=== PATIENT | male | born 1990 | race Caucasian/White ===

== ENCOUNTER 2017-02-20 01:56 | Emergency (ER) | payer SELFPAY ==
[~2017-02-20] VITALS: Ht 175.3 cm; Wt 69.4 kg
[~2017-02-20 01:56] MED LIST: LEVE500T PO
[2017-02-20 02:01] VITALS: TEMP 36.6; Ht 175.3 cm; Wt 69.4 kg
[2017-02-20] MEDS ORDERED: LEVETIRACETAM 500 MG TAB PO STA (02:32)
[2017-02-20 02:49] VITALS: BP 151/93; PULSE 87; O2SAT 94
--- NOTE | 2017-02-20 03:15 | EMERGENCY ROOM VISIT NOTE ---
History Report prepared by Toya: Paula Conner Under the Supervision of: Dr. Nina Nunez D.O. First contact with patient: 02:07 Chief Complaint: SEIZURE Stated Complaint: SEIZURE History of Present Illness The patient is a 26 year old male who presents to the Emergency Room with complaints of resolved seizure-like activity occurring tonight. He was arguing with a friend when he started having severe shakiness. He fell down as a result of the seizure. He was unable to talk but could hear those around him. He did not lose consciousness and remembers the entire incident. He did not have tongue biting or urinary incontinence. He had dizziness and lightheadedness after the seizure which has now resolved. The patient has a history of seizures with similar symptoms. He was first diagnosed in March 2016. His seizures occur when he is stressed out. He stopped taking Keppra about 6 months ago. He has the prescription for the Keppra and is planning on getting it filled. He has an appointment with his neurologist in 2 weeks. The patient denies headaches, visual changes, chest pain, abdominal pain, or any other complaints. He denies any history of heart disease or diabetes. He denies any drug or alcohol use tonight. The patient's licence has been suspended till 2022. Source of History: patient Onset: tonight Position: other (global) Quality: other (seizure-like activity) Timing: resolved Associated Symptoms: No LOC, No headache, No chest pain, No abdominal pain Review of Systems See HPI for pertinent positives & negatives. A total of 10 systems reviewed and were otherwise negative. Past Medical & Surgical Medical Problems: (1) Migraines (2) NEW SEIZURE DISORDER Family History Cancer Heart disease Social History Smoking Status: Current Every Day Smoker Alcohol Use: none Drug Use: none Marital Status: single Housing Status: lives with family Occupation Status: employed Current/Historical Medications Scheduled Levetiractam (Levetiracetam), 500 MG PO BID Allergies Coded Allergies: Penicillins (Verified Allergy, Unknown, UNKNOWN, 02/20/17) Sulfa Antibiotics (Verified Allergy, Unknown, UNKNOWN, 02/20/17) Physical Exam Vital Signs Date Time Temp Pulse Resp B/P (MAP) Pulse Ox O2 Delivery O2 Flow Rate FiO2 02/20/17 02:49 87 18 151/93 94 02/20/17 02:01 36.6 93 18 146/92 95 Room Air Physical Exam HEENT: Head - normocephalic and atraumatic Pupils are equal, round, and reactive to light. Extraocular eye muscles are intact, and sclera are anicteric. Nose - moist nasal mucosa without discharge. Mouth - moist buccal mucosa. Oropharynx is nonerythematous and there is no tonsillar exudate or edema noted. Neck: Supple; no JVD, nuchal rigidity, cervical lymphadenopathy. Heart: Regular rate and rhythm. There is a normal S1 and S2 with no murmurs, clicks, or gallops appreciated. Lungs: Clear to auscultation bilaterally with no wheezes, rales, or rhonchi. Abdomen: Soft, completely nontender, nondistended, with good bowel sounds. There are no palpable pulsatile masses or hepatosplenomegaly. There is no guarding, rigidity, or rebound noted. Extremities: No evidence of cyanosis, clubbing, or edema. There are easily palpable peripheral pulses. Skin: warm and dry with good turgor and no rashes. Medical Decision & Procedures Medications Administered Medications (Trade) Dose Ordered Sig/Bryanna Route Start Time Stop Time Status Last Admin Dose Admin Levetiracetam (Keppra Tab) 500 mg NOW STAT PO 02/20/17 02:32 02/20/17 02:33 DC 02/20/17 02:42 500 MG Procedure Keppra Tab 500 mg PO ED Course 0207: Past medical records reviewed. The patient was evaluated in room A02. A complete history and physical exam was performed. I attest that I have personally reviewed the patient's current medication list. 0232: Keppra Tab 500 mg PO 0255: Upon reevaluation, the patient is resting comfortably. I discussed findings and results with him. He verbalized agreement of the treatment plan. The patient was discharged home. Medical Decision The patient presents to the Emergency Room with complaints of seizure-like activity. Differential diagnosis includes but is not limited to seizure, pseudoseizure. The patient had this seizure earlier this evening. EMS was called but he refused to be transported to the hospital at that time. I strongly encouraged that he come on his own. The patient's father brought him here for evaluation. The patient has a history of seizures for which she is supposed to be taking Keppra. He stopped taking his medications about 6 months ago and has not had a problem until now. The patient currently does not drive as he was recently incarcerated for driving on a suspended license. His license is suspended until 2022. I suggested that he not perform any dangerous activity until he he has taken his Keppra for some time so that he has a therapeutic level on his body. I also suggested that someone be with him at all times over the next couple of days until he does have a therapeutic level of Keppra in his body. Impression Primary Impression: Seizure Additional Impression: Noncompliance with medication regimen Scribe Attestation The scribe's documentation has been prepared under my direction and personally reviewed by me in its entirety. I confirm that the note above accurately reflects all work, treatment, procedures, and medical decision making performed by me. Departure Information Dispostion Home / Self-Care Referrals No Doctor, Assigned (PCP) Forms HOME CARE DOCUMENTATION FORM, IMPORTANT VISIT INFORMATION Patient Instructions ED Seizure Recurrent, My [facility], Seizures - [facility] Additional Instructions You must take your keppra. No driving You should be with someone at all times for next couple of days until Keppra is correctly dosed Problem Qualifiers
== END 2017-02-20 02:51 | disposition home or self-care (01) ==
LOC: C.EDB 01:56 → C.EDA 02:51
DX: R56.9 Unspecified convulsions (principal); Z91.14 Patient's other noncompliance with medication regimen; F17.210 Nicotine dependence, cigarettes, uncomplicated; Z80.9 Family history of malignant neoplasm, unspecified; Z79.899 Other long term (current) drug therapy

== ENCOUNTER 2017-03-06 14:45 | Emergency (ER) | payer SELFPAY ==
[~2017-03-06] VITALS: Ht 175.3 cm; Wt 65.9 kg
[2017-03-06 14:52] VITALS: Ht 175.3 cm; Wt 65.9 kg
[2017-03-06] MEDS ORDERED: SODIUM CHLORIDE 0.9% 1000ML 500 ML IV STA (15:11)
[2017-03-06] MEDS ORDERED: LEVETIRACETAM IV 500 MG in DEXTROSE 5% 100ML 100 ML IV STA (15:11)
[2017-03-06] MEDS ORDERED: SODIUM CHLORIDE 0.9% 1000ML 1,000 ML IV STA (15:11)
[2017-03-06 15:49] LABS: BASO % 0.5 %; BASO ABS # 0.03 K/uL (0-0.2); COMPLETE YES; HEMATOCRIT 43.1 % (42-52); IG% 0.2 %; LYMPH % 40.2 %; LYMPH ABS # 2.21 K/uL (1.2-3.4); MEAN CELL VOLUME 88.5 fL (80-100); MEAN CORPUSCULAR HEMOGLOBIN 29.4 pg (25-34); MEAN CORPUSCULAR HGB CONC 33.2 g/dl (32-36); MEAN PLATELET VOLUME 10.1 fL (7.4-10.4); MONO % 7.1 %; PLATELET COUNT 195 K/uL (130-400); RED BLOOD COUNT 4.87 M/uL (4.7-6.1)
[2017-03-06 16:10] LABS: BUN/CREATININE RATIO 11.1 (10-20); CALCIUM 8.1 mg/dl (8.5-10.1); CREATININE 0.8 mg/dl (0.60-1.40); POTASSIUM 3.7 mmol/L (3.5-5.1)
[2017-03-06 16:19] LABS: THYROID STIMULATING HORMONE 0.451 uIu/ml (0.300-4.500)
[2017-03-06] MEDS ORDERED: ACETAMINOPHEN 500 MG TAB PO STA (16:58)
[2017-03-06 17:12] VITALS: BP 131/75; PULSE 70; TEMP 36.5; O2SAT 98
--- NOTE | 2017-03-06 18:04 | EMERGENCY ROOM VISIT NOTE ---
History Report prepared by Toya: Agapito Osborn Under the Supervision of: Dr. Nick Frank M.D. First contact with patient: 15:07 Chief Complaint: SEIZURE Stated Complaint: SEIZURES History of Present Illness The patient is a 26 year old male who presents to the Emergency Room with complaints of four episodes of seizure-like activity occurring today. He notes that she recently began taking Keppra again for seizures about a week ago. He states that he stopped taking Keppra because he was staying with family and didn 't refill his prescription. The patient states that he would typically only have breakthrough seizures with increased stress when regularly taking Keppra. He denies any increased stress recently. He states that he has been eating and drinking normally. The patient states that he sat down before his seizures occurred and did not injure himself. He estimates that the episodes lasted for 10-15 seconds. He states that he lost consciousness during the episodes. Source of History: patient Onset: Today Symptom Intensity: 10-15 second episodes Quality: other (Seizure-like activity) Timing: other (four episodes) Modifying Factors (Worsening): other (stress) Associated Symptoms: + LOC Review of Systems See HPI for pertinent positives & negatives. A total of 10 systems reviewed and were otherwise negative. Past Medical & Surgical Medical Problems: (1) Migraines (2) NEW SEIZURE DISORDER Family History Cancer Heart disease Social History Smoking Status: Current Every Day Smoker Alcohol Use: none Drug Use: none Marital Status: single Housing Status: lives with family Occupation Status: employed Current/Historical Medications Scheduled Levetiractam (Levetiracetam), 500 MG PO BID Allergies Coded Allergies: Penicillins (Verified Allergy, Unknown, UNKNOWN, 03/06/17) Sulfa Antibiotics (Verified Allergy, Unknown, UNKNOWN, 03/06/17) Physical Exam Vital Signs Date Time Temp Pulse Resp B/P (MAP) Pulse Ox O2 Delivery O2 Flow Rate FiO2 03/06/17 17:12 36.5 70 16 131/75 98 03/06/17 16:56 70 16 131/75 98 Room Air 03/06/17 15:55 55 03/06/17 15:55 46 16 128/75 98 Room Air 03/06/17 14:52 36.5 65 18 137/83 98 Room Air Physical Exam GENERAL: Patient is in no acute distress. HEENT: No acute trauma, normocephalic atraumatic, mucous membranes moist, no nasal congestion, no scleral icterus. No tongue bite. NECK: No stridor, no adenopathy, no meningismus, trachea is midline. LUNGS: Clear to auscultation bilaterally, no wheeze, no rhonchi, breath sounds equal. HEART: Without murmurs gallops or rubs, regular rate and rhythm. ABDOMEN: Soft, nontender, bowel sounds positive, no hernias, no peritonitis. EXTREMITIES: No cyanosis or edema, full range of motion of all the joints without pain or difficulty, no signs for acute trauma. NEUROLOGIC: Oriented x 3, no acute motor or sensory deficits, no focal weakness. SKIN: No rash, no jaundice, no diaphoresis. Medical Decision & Procedures Laboratory Results 03/06/17 15:35 Red Blood Count 4.87, Mean Corpuscular Volume 88.5, Mean Corpuscular Hemoglobin 29.4, Mean Corpuscular Hemoglobin Concent 33.2, Mean Platelet Volume 10.1, Neutrophils (%) (Auto) 50.0, Lymphocytes (%) (Auto) 40.2, Monocytes (%) (Auto) 7.1, Eosinophils (%) (Auto) 2.0, Basophils (%) (Auto) 0.5, Neutrophils # (Auto) 2.75, Lymphocytes # (Auto) 2.21, Monocytes # (Auto) 0.39, Eosinophils # (Auto) 0.11, Basophils # (Auto) 0.03 03/06/17 15:35 Test 03/06/17 15:35 White Blood Count 5.50 K/uL (4.8-10.8) Red Blood Count 4.87 M/uL (4.7-6.1) Hemoglobin 14.3 g/dL (14.0-18.0) Hematocrit 43.1 % (42-52) Mean Corpuscular Volume 88.5 fL (80-100) Mean Corpuscular Hemoglobin 29.4 pg (25-34) Mean Corpuscular Hemoglobin Concent 33.2 g/dl (32-36) Platelet Count 195 K/uL (130-400) Mean Platelet Volume 10.1 fL (7.4-10.4) Neutrophils (%) (Auto) 50.0 % Lymphocytes (%) (Auto) 40.2 % Monocytes (%) (Auto) 7.1 % Eosinophils (%) (Auto) 2.0 % Basophils (%) (Auto) 0.5 % Neutrophils # (Auto) 2.75 K/uL (1.4-6.5) Lymphocytes # (Auto) 2.21 K/uL (1.2-3.4) Monocytes # (Auto) 0.39 K/uL (0.11-0.59) Eosinophils # (Auto) 0.11 K/uL (0-0.5) Basophils # (Auto) 0.03 K/uL (0-0.2) RDW Standard Deviation 40.4 fL (36.4-46.3) RDW Coefficient of Variation 12.6 % (11.5-14.5) Immature Granulocyte % (Auto) 0.2 % Immature Granulocyte # (Auto) 0.01 K/uL (0.00-0.02) Anion Gap 7.0 mmol/L (3-11) Est Creatinine Clear Calc Drug Dose 130.4 ml/min Estimated GFR () 142.9 Estimated GFR (Non- 123.3 BUN/Creatinine Ratio 11.1 (10-20) Calcium Level 8.1 mg/dl (8.5-10.1) Total Bilirubin 0.3 mg/dl (0.2-1) Aspartate Amino Transf (AST/SGOT) 14 U/L (15-37) Alanine Aminotransferase (ALT/SGPT) 17 U/L (12-78) Alkaline Phosphatase 112 U/L (45-117) Total Protein 7.5 gm/dl (6.4-8.2) Albumin 3.7 gm/dl (3.4-5.0) Globulin 3.8 gm/dl (2.5-4.0) Albumin/Globulin Ratio 1.0 (0.9-2) Thyroid Stimulating Hormone (TSH) 0.451 uIu/ml (0.300-4.500) Laboratory results reviewed by me. Medications Administered Medications (Trade) Dose Ordered Sig/Bryanna Route Start Time Stop Time Status Last Admin Dose Admin Sodium Chloride 500 ml @ 999 mls/hr Q31M STAT IV 03/06/17 15:11 03/06/17 15:41 DC 03/06/17 15:54 999 MLS/HR Sodium Chloride 1,000 ml @ 200 mls/hr Q5H STAT IV 03/06/17 15:11 6/19/17 17:30 DC 03/06/17 16:32 200 MLS/HR Levetiracetam 500 mg/Dextrose 105 ml @ 420 mls/hr NOW STAT IV 03/06/17 15:11 03/06/17 15:25 DC 03/06/17 15:54 420 MLS/HR Acetaminophen (Tylenol Tab) 1,000 mg NOW STAT PO 03/06/17 16:58 03/06/17 17:00 DC 03/06/17 17:07 1,000 MG ECG Indication: other (seizure) Rate (beats per minute): 54 Rhythm: sinus bradycardia, sinus with SA Findings: no acute ischemic change, no ectopy ED Course 1510: The patient was evaluated in room B9. A complete history and physical exam was performed. 151: Ordered Levetiracetam 500 mg/Dextrose 105 mL @ 420 mL/hr IV, Sodium Chloride 1000 ml @ 200 mls/hr IV, Sodium Chloride 500 ml @ 999 mls/hr IV. 1655: Reevaluated the patient. Discussed results and discharge instructions: he verbalized understanding and agreement. The patient is ready for discharge. Medical Decision The patient is a 26 year old male who presents to the ED with complaints of four episodes of seizure-like activity. Differential diagnoses considered include medication noncompliance, breakthrough seizures, syncope, electrolyte imbalance, anemia, fatigue, and dehydration. Blood Pressure Screening: Patient was found to have normal blood pressure on screening and does not require follow-up. Medication Reconciliation: I attest that I have personally reviewed the patient' s current medication list. There is no leukocytosis or concerning anemia. No significant electrolyte abnormality, kidney failure or hepatitis. The patient appears to be in a euthyroid state. On exam, there were no focal neurologic deficits. The patient does not have evidence for meningismus. He is not toxic or febrile. The patient received oral Tylenol for a mild headache. He was given IV saline. He was given IV Keppra. I did speak to the patient's family doctor's office. The patient has been noncompliant with medications. It was decided to increase the patient's Keppra dosing to 1000 mg in the morning and then 500 at night. The patient was discharged to follow as an outpatient. 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 He was told to return here for persistent symptoms. Consults Time Called: 1649 Consulting Physician: Dr. Grady [facility] Returned Call: [phone] Discussed the patient's case. Dr. Grady recommends that the patient have his Keppra dosage increased slightly, and have the patient follow up in the office. The patient's Keppra dose will be increased to 1000 mg in the morning and 500 mg at night. Impression Primary Impression: Seizure Scribe Attestation The scribe's documentation has been prepared under my direction and personally reviewed by me in its entirety. I confirm that the note above accurately reflects all work, treatment, procedures, and medical decision making performed by me. Departure Information Dispostion Home / Self-Care Forms HOME CARE DOCUMENTATION FORM, IMPORTANT VISIT INFORMATION Patient Instructions My [facility] Additional Instructions increase Keppra to 1000 mg in the am and 500 mg in the pm see Dr. Demetrius Garcia in the office this week return if worsening lab testing was all ok
== END 2017-03-06 17:11 | disposition home or self-care (01) ==
LOC: C.EDB 14:47
DX: R56.9 Unspecified convulsions (principal); Z80.9 Family history of malignant neoplasm, unspecified; F17.210 Nicotine dependence, cigarettes, uncomplicated; Z91.14 Patient's other noncompliance with medication regimen

== ENCOUNTER 2017-08-14 01:40 | Emergency (ER) | payer OTHER ==
[~2017-08-14] VITALS: Ht 175.3 cm; Wt 63.3 kg
[2017-08-14 01:47] VITALS: TEMP 37.1; Ht 175.3 cm; Wt 63.3 kg
[2017-08-14] MEDS ORDERED: SODIUM CHLORIDE 0.9% 1000ML 1,000 ML IV STA (02:07)
--- NOTE | 2017-08-14 02:10 | EMERGENCY ROOM VISIT NOTE ---
History Report prepared by Toya: Jonatan Peterson Under the Supervision of: Dr. Roma Argueta D.O. First contact with patient: 01:54 Chief Complaint: SEIZURE Stated Complaint: SEIZURES,CONFUSION History of Present Illness The patient is a 27 year old male who presents to the Emergency Room following a seizure episode that occurred this evening immediately prior to arrival. The patient was diagnosed with a seizure disorder almost two years ago and has been on Keppra to keep the episodes under control. He notes that he recently moved to [place] and did not have insurance to pay for the Keppra. He was off of this medication for a few months. The patient's noted that this seizure was longer than normal and lasted roughly 90 seconds. She claimed that it seemed as though he would come out of the seizure and then seize again. The patient's seizure began following a traumatic brain injury. 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 He also complained that he has been having trouble urinating lately. He has not been able to void efficiently. The patient feels as though he can completely empty his bladder but it takes him a very long time. He is currently experiencing a headache. Source of History: patient, spouse/significant other Onset: immediatley prior to arrival. Position: other (Global) Quality: other (Seizure) Timing: resolved Associated Symptoms: + headache, + urinary symptoms Review of Systems See HPI for pertinent positives & negatives. A total of 10 systems reviewed and were otherwise negative. Past Medical & Surgical Medical Problems: (1) Migraines (2) NEW SEIZURE DISORDER Family History Cancer Heart disease Social History Smoking Status: Current Every Day Smoker Alcohol Use: none Drug Use: none Marital Status: single Housing Status: lives with family Occupation Status: employed Current/Historical Medications Scheduled Levetiracetam (Keppra), 1 TAB PO BID Allergies Coded Allergies: Penicillins (Verified Allergy, Unknown, UNKNOWN, 08/14/17) Sulfa Antibiotics (Verified Allergy, Unknown, UNKNOWN, 08/14/17) Physical Exam Vital Signs Date Time Temp Pulse Resp B/P (MAP) Pulse Ox O2 Delivery O2 Flow Rate FiO2 08/14/17 05:04 100 16 111/88 98 Room Air 08/14/17 03:29 91 20 122/70 95 Room Air 08/14/17 02:02 119 08/14/17 01:47 37.1 129 18 124/85 95 Room Air Physical Exam GENERAL: alert, well appearing, well nourished, no distress, non-toxic EYE EXAM: normal conjunctiva, PERRL and EOM's grossly intact OROPHARYNX: Poor dentition, several dental carries. No contusions to the tongue. no exudate, no erythema, lips, buccal mucosa, and tongue normal and mucous membranes are moist NECK: supple, no nuchal rigidity, no adenopathy, non-tender LUNGS: Clear to auscultation. Normal chest wall mechanics HEART: no murmurs, S1 normal and S2 normal ABDOMEN: abdomen soft, non-tender, normo-active bowel sounds, no masses, no rebound or guarding. BACK: Back is symmetrical on inspection and there is no deformity, no midline tenderness, no CVA tenderness. SKIN: no rashes and no bruising UPPER EXTREMITIES: upper extremities are grossly normal. LOWER EXTREMITIES: No pitting edema. NEURO EXAM: Normal sensorium, cranial nerves Medical Decision & Procedures ER Provider Diagnostic Interpretation: Radiology results have been interpreted by the radiologist and reviewed by me. CTA HEAD: Noncontrast head CT. No intracranial hemorrhage or other acute intracranial findings. No aneurysm, large vessel occlusion or other vascular etiology for patient's symptoms is identified. Mild sinus opacity with mucosal retention cysts. Radiologist; Cristofer Solis M.D. Laboratory Results 08/14/17 02:15 Red Blood Count 4.88, Mean Corpuscular Volume 86.3, Mean Corpuscular Hemoglobin 29.9, Mean Corpuscular Hemoglobin Concent 34.7, Mean Platelet Volume 10.6, Neutrophils (%) (Auto) 66.4, Lymphocytes (%) (Auto) 21.1, Monocytes (%) (Auto) 9.5, Eosinophils (%) (Auto) 2.3, Basophils (%) (Auto) 0.4, Neutrophils # (Auto) 7.01, Lymphocytes # (Auto) 2.23, Monocytes # (Auto) 1.00, Eosinophils # (Auto) 0.24, Basophils # (Auto) 0.04 08/14/17 02:15 Test 08/14/17 02:15 White Blood Count 10.55 K/uL (4.8-10.8) Red Blood Count 4.88 M/uL (4.7-6.1) Hemoglobin 14.6 g/dL (14.0-18.0) Hematocrit 42.1 % (42-52) Mean Corpuscular Volume 86.3 fL (80-100) Mean Corpuscular Hemoglobin 29.9 pg (25-34) Mean Corpuscular Hemoglobin Concent 34.7 g/dl (32-36) Platelet Count 169 K/uL (130-400) Mean Platelet Volume 10.6 fL (7.4-10.4) Neutrophils (%) (Auto) 66.4 % Lymphocytes (%) (Auto) 21.1 % Monocytes (%) (Auto) 9.5 % Eosinophils (%) (Auto) 2.3 % Basophils (%) (Auto) 0.4 % Neutrophils # (Auto) 7.01 K/uL (1.4-6.5) Lymphocytes # (Auto) 2.23 K/uL (1.2-3.4) Monocytes # (Auto) 1.00 K/uL (0.11-0.59) Eosinophils # (Auto) 0.24 K/uL (0-0.5) Basophils # (Auto) 0.04 K/uL (0-0.2) RDW Standard Deviation 40.1 fL (36.4-46.3) RDW Coefficient of Variation 12.6 % (11.5-14.5) Immature Granulocyte % (Auto) 0.3 % Immature Granulocyte # (Auto) 0.03 K/uL (0.00-0.02) Urine Color DK YELLOW Urine Appearance CLOUDY (CLEAR) Urine pH 5.0 (4.5-7.5) Urine Specific [place] 1.038 (1.000-1.030) Urine Protein 1+ (NEG) Urine Glucose (UA) NEG (NEG) Urine Ketones TRACE (NEG) Urine Occult Blood NEG (NEG) Urine Nitrite NEG (NEG) Urine Bilirubin NEG (NEG) Urine Urobilinogen NEG (NEG) Urine Leukocyte Esterase NEG (NEG) Urine WBC (Auto) 1-5 /hpf (0-5) Urine RBC (Auto) 5-10 /hpf (0-4) Urine Hyaline Casts (Auto) 1-5 /lpf (0-5) Urine Epithelial Cells (Auto) 5-10 /lpf (0-5) Urine Bacteria (Auto) NEG (NEG) Urine Crystals CALCIUM OXALATE (NONE Urine Sperm (Auto) PRESENT (NOT PRESENT) Anion Gap 9.0 mmol/L (3-11) Est Creatinine Clear Calc Drug Dose 84.9 ml/min Estimated GFR () 98.4 Estimated GFR (Non- 84.9 BUN/Creatinine Ratio 13.4 (10-20) Calcium Level 9.0 mg/dl (8.5-10.1) Phosphorus Level 3.4 mg/dl (2.5-4.9) Magnesium Level 1.8 mg/dl (1.8-2.4) Total Bilirubin 0.4 mg/dl (0.2-1) Aspartate Amino Transf (AST/SGOT) 44 U/L (15-37) Alanine Aminotransferase (ALT/SGPT) 50 U/L (12-78) Alkaline Phosphatase 90 U/L (45-117) Troponin I < 0.015 ng/ml (0-0.045) Total Protein 7.7 gm/dl (6.4-8.2) Albumin 3.8 gm/dl (3.4-5.0) Globulin 3.9 gm/dl (2.5-4.0) Albumin/Globulin Ratio 1.0 (0.9-2) Urine Opiates Screen NEG (NEG) Urine Methadone, Qualitative NEG (NEG) Urine Barbiturates NEG (NEG) Urine Phencyclidine (PCP) Level NEG (NEG) Ur Amphetamine/Methamphetamine POS (NEG) MDMA (Ecstasy) Screen POS (NEG) Urine Benzodiazepines Screen NEG (NEG) Urine Cocaine Metabolite NEG (NEG) Urine Marijuana (THC) NEG (NEG) Laboratory results per my review. Medications Administered Medications (Trade) Dose Ordered Sig/Bryanna Route Start Time Stop Time Status Last Admin Dose Admin Sodium Chloride 1,000 ml @ 999 mls/hr Q1H1M STAT IV 08/14/17 02:07 08/14/17 03:07 DC 08/14/17 02:07 999 MLS/HR Levetiracetam 1000 mg/Dextrose 110 ml @ 440 mls/hr ONE ONCE IV 08/14/17 02:15 08/14/17 02:29 DC 08/14/17 02:38 440 MLS/HR ECG Indication: other (Seizure) Rate (beats per minute): 106 Rhythm: sinus tachycardia Findings: no acute ischemic change, no ectopy, other (Normal [place], Normal Intevals) ED Course 0156: The patient was evaluated in room A10. A complete history and physical exam was performed. 0207: Ordered Sodium Chloride 1000 mL @ 999 mL/hr IV. 0215: Ordered Levetiracetam 110 mL @ 440 mL/hr IV. 0515: Upon reevaluation, the patient is feeling better. I discussed the findings and the treatment plan with the patient. He verbalizes agreement and understanding. The patient was discharged home. Medical Decision Differential diagnosis: Etiologies such as infection, hypoglycemia, electrolyte abnormalities, cardiac sources, intracerebral event, trauma, toxicologic, neurologic, as well as others were entertained. No recurrent seizure activity noted while patient was here. Patient with a history of prior seizure disorders and previously well controlled on Keppra. Patient does have preceding aura and has several known triggers. Patient is not been taking his Keppra for several months now and has not been back to his family doctor. She also states he is under increased stress recently and feels this could've been contributing. Discussed with patient reinitiation of his antiepileptic, close follow-up with his family doctor, avoiding alcohol and drug use, eating adequate sleep, diet and activity, he verbalized understanding of this was agreeable with plan. Patient had previously mention he had been told he had a prior aneurysm, he was for this reason as well as recent worsening headaches and recurrent seizures that neuroimaging was pursued. The CAT scan of the patient's head were negative for any acute findings including intracranial hemorrhage, CVA, and there is no evidence of aneurysm on angiography. Pt well appearing here, VS stable. Patient given IV load of Keppra. Emulating with steady gait and tolerating by mouth at time of discharge. Medication Reconcilliation Current Medication List: was personally reviewed by me Blood Pressure Screening Patient's blood pressure: Normal blood pressure Impression Primary Impression: Recurrent seizures Scribe Attestation The scribe's documentation has been prepared under my direction and personally reviewed by me in its entirety. I confirm that the note above accurately reflects all work, treatment, procedures, and medical decision making performed by me. Departure Information Dispostion Home / Self-Care Prescriptions Levetiracetam (KEPPRA) 500 Mg Tab 1 TAB PO BID for 30 Days, #60 TAB 5 Refills Prov: Roma Argueta DO 08/14/17 Referrals Isreal Guzman M.D. (PCP) Patient Instructions My [facility] Additional Instructions Please take your seizure medication daily as prescribed. Do not skip any doses. Please get adequate sleep, eat and drink rarely, avoid alcohol and recreational drug use as these can contribute to seizures also. Please follow up with your family doctor to assure that you are doing well after restarting the medication. If you have any breakthrough seizures, abnormal seizures, develop fevers, vomiting, headaches, vision changes, dizziness, or you've any other new or concerning symptoms, please return the emergency room.
[2017-08-14] MEDS ORDERED: LEVETIRACETAM IV 1,000 MG in DEXTROSE 5% 100ML 100 ML IV ONE (02:15)
[2017-08-14 02:25] LABS: BASO % 0.4 %; BASO ABS # 0.04 K/uL (0-0.2); COMPLETE YES; EOS % 2.3 %; HEMATOCRIT 42.1 % (42-52); IG% 0.3 %; LYMPH % 21.1 %; LYMPH ABS # 2.23 K/uL (1.2-3.4); MEAN CELL VOLUME 86.3 fL (80-100); MEAN CORPUSCULAR HEMOGLOBIN 29.9 pg (25-34); MEAN CORPUSCULAR HGB CONC 34.7 g/dl (32-36); MEAN PLATELET VOLUME 10.6 fL (7.4-10.4); MONO % 9.5 %; NEUT % 66.4 %; PLATELET COUNT 169 K/uL (130-400); RED BLOOD COUNT 4.88 M/uL (4.7-6.1); WHITE BLOOD COUNT 10.55 K/uL (4.8-10.8)
[2017-08-14 02:36] LABS: URINE APPEARANCE CLOUDY (CLEAR); URINE BILIRUBIN NEG (NEG); URINE COLOR DK YELLOW; URINE NITRITE NEG (NEG); URINE SPECIFIC GRAVITY 1.038 (1.000-1.030); UROBILINOGEN NEG (NEG); ZZUR CULT IF INDIC CLEAN CATCH NO
[2017-08-14 02:40] LABS: REVIEW REQ? YES
[2017-08-14 02:41] LABS: MANUAL MICROSCOPIC REQUIRED? NO
[2017-08-14 02:47] LABS: ALT/SGPT 50 U/L (12-78); BLOOD UREA NITROGEN 16 mg/dl (7-18); BUN/CREATININE RATIO 13.4 (10-20); CARBON DIOXIDE 27 mmol/L (21-32); CHLORIDE 101 mmol/L (98-107); CREATININE 1.17 mg/dl (0.60-1.40); GLUCOSE 117 mg/dl (70-99); SODIUM 137 mmol/L (136-145)
[2017-08-14 02:50] LABS: POTASSIUM 3.8 mmol/L (3.5-5.1)
[2017-08-14 02:53] LABS: BENZODIAZEPINE, URINE NEG (NEG); COCAINE,URINE NEG (NEG); PHENCYCLIDINE, URINE NEG (NEG)
[2017-08-14 02:54] LABS: AST/SGOT 44 U/L (15-37); MAGNESIUM 1.8 mg/dl (1.8-2.4)
[2017-08-14 03:01] LABS: ALKALINE PHOSPHATASE 90 U/L (45-117); PHOSPHORUS 3.4 mg/dl (2.5-4.9)
[2017-08-14] MEDS ORDERED: OPTIRAY 320 IV PRN (03:15)
[2017-08-14] MEDS ORDERED: LEVE500T13 PO (04:56)
[2017-08-14 05:04] VITALS: BP 111/88; PULSE 100; O2SAT 98
--- NOTE | 2017-08-14 06:52 | DIAGNOSTIC IMAGING REPORT ---
ANGIOGRAPHY HEAD COMBO CLINICAL HISTORY: 27 years-old Male presents with acute confusion and seizures. COMPARISON STUDY: CT head and MRI brain 04/27/2016 TECHNIQUE: Unenhanced axial CT scan of the brain is performed. Subsequently, following the IV administration of 93 cc of Optiray 320, CT angiogram of the brain was performed from the skull base to the vertex. Images are reviewed in the axial, sagittal, and coronal planes. 3-D MIPS images are created and assessed. IV contrast was administered without complication. A dose lowering technique was utilized adhering to the principles of ALARA. CT DOSE: 632.64 mGy.cm FINDINGS: CT BRAIN: There is no acute intracranial hemorrhage, midline shift, hydrocephalus, intracranial mass, territorial ischemia or abnormal extra-axial collections. No abnormal intra-axial or extra-axial enhancement. Mastoid air cells and middle ear cavities are clear. No calvarial fracture. There is mild polypoid mucosal thickening of the left maxillary and right sphenoid sinus. CT ANGIOGRAM OF THE BRAIN: The imaged bilateral internal carotid arteries are patent. The bilateral anterior and middle cerebral arteries are also patent. The vertebrobasilar system and posterior cerebral arteries are widely patent. The right vertebral artery is dominant. There is no aneurysm, high-grade stenosis, or proximal branch occlusion identified. Dural sinuses appear patent. IMPRESSION: 1. No acute intracranial abnormality. 2. Unremarkable CTA of the brain without high-grade stenosis, aneurysm, dissection or proximal branch occlusion. 3. Mild paranasal sinus disease. The above report was generated using voice recognition software. It may contain grammatical, syntax or spelling errors. Electronically signed by: Jesus Greenberg M.D. 08/14/2017 6:50 AM Dictated Date/Time: 08/14/2017 6:45 AM
== END 2017-08-14 05:05 | disposition home or self-care (01) ==
LOC: C.EDB 01:42 → C.EDA 05:05
DX: G40.909 Epilepsy, unspecified, not intractable, without status epilepticus (principal); F17.200 Nicotine dependence, unspecified, uncomplicated; Z87.820 Personal history of traumatic brain injury; Z79.899 Other long term (current) drug therapy

== ENCOUNTER 2017-08-28 20:19 | Emergency (ER) | payer OTHER ==
[~2017-08-28] VITALS: Ht 175.3 cm; Wt 64.3 kg
[~2017-08-28 20:19] MED LIST changes: -LEVE500T PO; +LEVE500T13 PO
[2017-08-28 20:28] VITALS: TEMP 37; Ht 175.3 cm; Wt 64.3 kg
[2017-08-28 21:10] LABS: URINE APPEARANCE CLEAR (CLEAR); URINE BILIRUBIN NEG (NEG); URINE COLOR YELLOW; URINE NITRITE NEG (NEG); URINE PH 7.5 (4.5-7.5); URINE SPECIFIC GRAVITY 1.009 (1.000-1.030); UROBILINOGEN NEG (NEG); ZZUR CULT IF INDIC CLEAN CATCH NO
[2017-08-28 21:11] LABS: MANUAL MICROSCOPIC REQUIRED? NO; REVIEW REQ? NO
[2017-08-28] MEDS ORDERED: LEVE500T13 PO (21:11)
--- NOTE | 2017-08-28 21:24 | EMERGENCY ROOM VISIT NOTE ---
History Report prepared by Toya: Dionrah Marin Under the Supervision of: Dr. Sven Garza M.D. First contact with patient: 20:32 Chief Complaint: UNABLE TO VOID Stated Complaint: CANT URINATE,PAIN IN SIDES,LWR ABD,TOOTH PAIN History of Present Illness The patient is a 27 year old white male with a past medical history of seizure, migraines who presents to the ED with a cc of persistent difficulty urinating beginning 1 month ago. He feels that he has to urinate, but is only able to pass a couple drops. He has never had this before. Positive lower abdominal pain , flank pain, dental pain. Negative hematuria, nausea, vomiting. He denies any trauma to the penis. He is circumcised. He is drinking plenty of fluids. He has been taking 4-5 ibuprofen a day for dental pain. He notes that he had a seizure this afternoon and earlier this week. He denies any injury during his seizures. He is taking his Keppra as prescribed. He does smoke. He denies any drug use. Source of History: patient Onset: 1 month ago Position: other (global) Quality: other (difficulty urinating) Timing: other (persistent) Associated Symptoms: + abdominal pain, + back pain, No nausea, No vomiting Note: Pt reports dental pain, seizures. Pt denies hematuria. Review of Systems See HPI for pertinent positives and negatives. A total of ten systems were reviewed and were otherwise negative. Past Medical & Surgical Medical Problems: (1) Migraines (2) NEW SEIZURE DISORDER Family History Cancer Heart disease Hypertension Social History Smoking Status: Current Every Day Smoker Alcohol Use: none Drug Use: none Marital Status: Housing Status: lives with family Occupation Status: unemployed Current/Historical Medications Scheduled Levetiracetam (Keppra), 500 MG PO BID Tamsulosin Hcl (Flomax), 0.4 MG PO DAILY Allergies Coded Allergies: Penicillins (Verified Allergy, Unknown, UNKNOWN, 08/28/17) Sulfa Antibiotics (Verified Allergy, Unknown, UNKNOWN, 08/28/17) Physical Exam Vital Signs Date Time Temp Pulse Resp B/P (MAP) Pulse Ox O2 Delivery O2 Flow Rate FiO2 08/28/17 22:14 75 16 133/73 99 Room Air 08/28/17 20:28 37.0 84 18 131/72 96 Room Air Physical Exam GENERAL: Awake, alert, well-appearing, NAD HENT: Normocephalic, atraumatic. EYES: Normal conjunctiva. Sclera non-icteric. NECK: Supple. No nuchal rigidity. FROM. No midline C spine tenderness. RESPIRATORY: CTAB, no rhonchi, wheezing, crackles CARDIAC: RRR, no MRG ABDOMEN: Soft, NTND, BS+ : Circumcised. MSK: No chest wall TTP, no LE edema. No pain to the back, abdomen, chest, or extremities. NEURO: GCS 15, CN 2-12 intact, moves all 4s on command SKIN: No rash or jaundice noted. Medical Decision & Procedures ER Provider Diagnostic Interpretation: Radiology results as stated below per my review and radiologist interpretation: ULTRASOUND KIDNEYS AND BLADDER CLINICAL HISTORY: Difficulty voiding. Back pain. Urinary hesitancy. COMPARISON STUDY: No priors. TECHNIQUE: Real-time, grayscale, and color flow sonography of the kidneys and bladder is performed. Images are reviewed in the transverse and longitudinal planes. FINDINGS: Kidneys: The kidneys are normal in size and echotexture. The right kidney measures 11.3 x 4.6 x 5.7 cm and the left kidney measures 12.5 x 6.0 x 6.7 cm. Small extrarenal pelvises are incidentally noted. There is no hydronephrosis. No shadowing renal calculi are identified. There is no sonographic evidence of contour deforming renal mass lesion. No perinephric fluid is identified. Bladder: The bladder is normal in appearance. Bilateral ureteral jets were seen. A phlebolith is suspected in the right hemipelvis. IMPRESSION: Unremarkable sonographic assessment of the kidneys and bladder. Electronically signed by: Nick Avila M.D. 08/28/2017 9:48 PM Dictated Date/Time: 08/28/2017 9:46 PM Laboratory Results 08/28/17 21:05 Red Blood Count 5.38, Mean Corpuscular Volume 87.2, Mean Corpuscular Hemoglobin 30.3, Mean Corpuscular Hemoglobin Concent 34.8, Mean Platelet Volume 11.0, Neutrophils (%) (Auto) 57.9, Lymphocytes (%) (Auto) 31.5, Monocytes (%) (Auto) 8.5, Eosinophils (%) (Auto) 1.7, Basophils (%) (Auto) 0.3, Neutrophils # (Auto) 4.07, Lymphocytes # (Auto) 2.22, Monocytes # (Auto) 0.60, Eosinophils # (Auto) 0.12, Basophils # (Auto) 0.02 08/28/17 21:05 Test 08/28/17 20:38 08/28/17 21:05 Urine Color YELLOW Urine Appearance CLEAR (CLEAR) Urine pH 7.5 (4.5-7.5) Urine Specific [place] 1.009 (1.000-1.030) Urine Protein NEG (NEG) Urine Glucose (UA) NEG (NEG) Urine Ketones NEG (NEG) Urine Occult Blood NEG (NEG) Urine Nitrite NEG (NEG) Urine Bilirubin NEG (NEG) Urine Urobilinogen NEG (NEG) Urine Leukocyte Esterase NEG (NEG) White Blood Count 7.04 K/uL (4.8-10.8) Red Blood Count 5.38 M/uL (4.7-6.1) Hemoglobin 16.3 g/dL (14.0-18.0) Hematocrit 46.9 % (42-52) Mean Corpuscular Volume 87.2 fL (80-100) Mean Corpuscular Hemoglobin 30.3 pg (25-34) Mean Corpuscular Hemoglobin Concent 34.8 g/dl (32-36) Platelet Count 176 K/uL (130-400) Mean Platelet Volume 11.0 fL (7.4-10.4) Neutrophils (%) (Auto) 57.9 % Lymphocytes (%) (Auto) 31.5 % Monocytes (%) (Auto) 8.5 % Eosinophils (%) (Auto) 1.7 % Basophils (%) (Auto) 0.3 % Neutrophils # (Auto) 4.07 K/uL (1.4-6.5) Lymphocytes # (Auto) 2.22 K/uL (1.2-3.4) Monocytes # (Auto) 0.60 K/uL (0.11-0.59) Eosinophils # (Auto) 0.12 K/uL (0-0.5) Basophils # (Auto) 0.02 K/uL (0-0.2) RDW Standard Deviation 38.9 fL (36.4-46.3) RDW Coefficient of Variation 12.3 % (11.5-14.5) Immature Granulocyte % (Auto) 0.1 % Immature Granulocyte # (Auto) 0.01 K/uL (0.00-0.02) Anion Gap 4.0 mmol/L (3-11) Est Creatinine Clear Calc Drug Dose 114.7 ml/min Estimated GFR () 136.4 Estimated GFR (Non- 117.7 BUN/Creatinine Ratio 9.8 (10-20) Calcium Level 9.5 mg/dl (8.5-10.1) Laboratory results reviewed by me Medications Administered Medications (Trade) Dose Ordered Sig/Bryanna Route Start Time Stop Time Status Last Admin Dose Admin Levetiracetam (Keppra Tab) 500 mg ONE STAT PO 08/28/17 21:57 08/28/17 21:58 DC 08/28/17 22:12 500 MG ED Course 2042: The patient was evaluated in room A2. A complete history and physical exam was performed. 2209: I reevaluated the patient. Discussed results and discharge instructions: He verbalized understanding and agreement. The patient is ready for discharge. Medical Decision The patient is a 27 year old white male with a past medical history of seizure, migraines who presents to the ED with a cc of persistent difficulty urinating beginning 1 month ago. Differential diagnosis: UTI, BPH, kidney stone, ureteral or urethral stricture, abdominal mass. Patient was seen and evaluated at the bedside. Patient does have a prior history of seizures who states he's had some urinary hesitancy 1 month. Patient denies any penile pain or discharge. Patient has no prior history of any kidney problems or procedures. Patient states that he has been taking Keppra over the last 3 weeks which is 500 mg twice a day. Patient states that he did have a seizure today which was earlier today. He states it was not fairly prolonged. Patient states it was not witnessed. Patient denies any headache, body, or extremity pain. Patient has a nonfocal neurologic exam. Patient has no CVA tenderness to palpation. Patient has no other obvious signs of trauma. Patient was Negative and patient was [place] head CT negative less now advanced imaging of the head or neck was performed. Patient did have blood work that was completed along with a urinalysis as well as renal ultrasound. Patient had normal kidney function and a normal white count. Patient's urinalysis was negative for infection or blood. Patient had an unremarkable renal ultrasound. Patient was told of all findings. Patient was given his home dose of Keppra. Patient had no seizures here. Patient was told to continue taking his medications. Patient was given some Flomax to see if this helped. Given his age should is less likely be something like BPH. Patient was told to follow-up with his primary care for possible urology follow-up if he has persistent symptoms. Patient was agreeable with this plan of care. Patient was given strict follow-up, discharge, and return precautions. All questions were answered. Patient was deemed suitable for outpatient follow-up at this time. Patient agreed with the plan of care and was safely discharged home. Medication Reconcilliation Current Medication List: was personally reviewed by me Blood Pressure Screening Patient's blood pressure: Elevated blood pressure Blood pressure disposition: Elevated BP felt to be situational Impression Primary Impression: Seizure Additional Impression: Urinary hesitancy Scribe Attestation The scribe's documentation has been prepared under my direction and personally reviewed by me in its entirety. I confirm that the note above accurately reflects all work, treatment, procedures, and medical decision making performed by me. Departure Information Dispostion Home / Self-Care Prescriptions Tamsulosin Hcl (FLOMAX) 0.4 Mg Cap 0.4 MG PO DAILY for 14 Days, #14 CAP Prov: Sven Garza M.D. 08/28/17 Referrals Israel Guzman M.D. (PCP) Patient Instructions ED Smoking Cessation, My [facility], Seizures - [facility] Additional Instructions Please return to the emergency department if you have worsening or recurrent symptoms not amenable to at-home treatment. Please call for a follow-up appointment with her primary care physician. Please take your medications as prescribed. If you have other concerns and/or complaints please feel free to also call your primary care physician's office or return the ED for further evaluation, management, and treatment. Take the Flomax in the evening and see if it helps with your urinary hesitancy. If you still have persistent issues talk to your primary care physician about referral to a urologist.. You may take 600 mg Ibuprofen every 6 hours as needed for pain with food for no more than 2 consecutive days. You may take tylenol 1000 mg every 6 hours as needed for pain. You may take motrin and tylenol separately or at the same time. Take your medications as prescribed. You have been examined and treated today on an emergency basis only. This is not a substitute for, or an effort to provide, complete comprehensive medical care. It is impossible to recognize and treat all injuries or illnesses in a single emergency department visit. It is therefore important that you follow up closely with [facility], your PCP, and/or your specialist(s). Call as soon as possible for an appointment. Thank you for your time and consideration. I look forward to speaking with you again soon. Please don't hesitate to call us if you have any questions. Problem Qualifiers
[2017-08-28 21:32] LABS: BASO % 0.3 %; BASO ABS # 0.02 K/uL (0-0.2); COMPLETE YES; EOS % 1.7 %; HEMATOCRIT 46.9 % (42-52); IG% 0.1 %; LYMPH % 31.5 %; LYMPH ABS # 2.22 K/uL (1.2-3.4); MEAN CELL VOLUME 87.2 fL (80-100); MEAN CORPUSCULAR HEMOGLOBIN 30.3 pg (25-34); MEAN CORPUSCULAR HGB CONC 34.8 g/dl (32-36); MONO % 8.5 %; NEUT % 57.9 %; PLATELET COUNT 176 K/uL (130-400); RED BLOOD COUNT 5.38 M/uL (4.7-6.1); WHITE BLOOD COUNT 7.04 K/uL (4.8-10.8)
--- NOTE | 2017-08-28 21:49 | DIAGNOSTIC IMAGING REPORT ---
ULTRASOUND KIDNEYS AND BLADDER CLINICAL HISTORY: Difficulty voiding. Back pain. Urinary hesitancy. COMPARISON STUDY: No priors. TECHNIQUE: Real-time, grayscale, and color flow sonography of the kidneys and bladder is performed. Images are reviewed in the transverse and longitudinal planes. FINDINGS: Kidneys: The kidneys are normal in size and echotexture. The right kidney measures 11.3 x 4.6 x 5.7 cm and the left kidney measures 12.5 x 6.0 x 6.7 cm. Small extrarenal pelvises are incidentally noted. There is no hydronephrosis. No shadowing renal calculi are identified. There is no sonographic evidence of contour deforming renal mass lesion. No perinephric fluid is identified. Bladder: The bladder is normal in appearance. Bilateral ureteral jets were seen. A phlebolith is suspected in the right hemipelvis. IMPRESSION: Unremarkable sonographic assessment of the kidneys and bladder. Electronically signed by: Nick Avila M.D. 08/28/2017 9:48 PM Dictated Date/Time: 08/28/2017 9:46 PM
[2017-08-28 21:54] LABS: BUN/CREATININE RATIO 9.8 (10-20); CALCIUM 9.5 mg/dl (8.5-10.1); CREATININE 0.88 mg/dl (0.60-1.40)
[2017-08-28] MEDS ORDERED: LEVETIRACETAM 500 MG TAB PO STA (21:57)
[2017-08-28 22:14] VITALS: BP 133/73; PULSE 75; O2SAT 99
[2017-08-28] MEDS ORDERED: TAMS0.4C38 PO (22:20)
== END 2017-08-28 22:37 | disposition home or self-care (01) ==
LOC: C.EDB 20:20 → C.EDA 22:37
DX: G40.909 Epilepsy, unspecified, not intractable, without status epilepticus (principal); R39.11 Hesitancy of micturition; F17.200 Nicotine dependence, unspecified, uncomplicated; Z79.899 Other long term (current) drug therapy; Z88.0 Allergy status to penicillin; Z88.2 Allergy status to sulfonamides; Z80.9 Family history of malignant neoplasm, unspecified; Z82.49 Family history of ischemic heart disease and other diseases of the circulatory system

== ENCOUNTER 2017-11-20 11:10 | Emergency (ER) | payer OTHER ==
[~2017-11-20] VITALS: Ht 175.3 cm; Wt 66.6 kg
[2017-11-20 11:22] VITALS: TEMP 36.8; Ht 175.3 cm; Wt 66.6 kg
[2017-11-20] MEDS ORDERED: ASPIRIN 81 MG CHEW PO STA (12:22)
[2017-11-20] MEDS ORDERED: PROCHLORPERAZINE INJ 5 MG in SYRINGE 4 ML IV STA (12:37)
[2017-11-20] MEDS ORDERED: CLONIDINE HCL 0.3 MG/24 HR TRANSDERM SYS TD STA (12:37)
[2017-11-20] MEDS ORDERED: KETOROLAC TROMETHAMINE 30 MG/ML VIAL IV STA (12:37)
[2017-11-20] MEDS ORDERED: DiphenhydrAMINE HCL 50 MG/ML VIAL IV STA (12:37)
[2017-11-20] MEDS ORDERED: LEVETIRACETAM IV 1,000 MG in DEXTROSE 5% 100ML 100 ML IV STA (12:37)
[2017-11-20 12:38] VITALS: O2SAT 97
[2017-11-20] MEDS ORDERED: SODIUM CHLORIDE 0.9% 1000ML 1,000 ML IV STA (12:39)
--- NOTE | 2017-11-20 12:40 | EMERGENCY ROOM VISIT NOTE ---
History Report prepared by Toya: Jonatan Peterson Under the Supervision of: Dr. Tani Melara M.D. First contact with patient: 12:02 Chief Complaint: SEIZURE Stated Complaint: SYNCOPE Nursing Triage Summary: pt being served warrent by contact officer. per EMS, pt passes out and fell to ground. denies c/p or sob. pt w/ hx of seizures. pt trembling on assessment. pt states, "i have a headace, I've never had a headace this bad before, it is right behind my eyes." History of Present Illness The patient is a 27 year old male who presents to the Emergency Room with probation officers following a now-resolved seizure-like episode that occurred shortly prior to arrival. Per the officers at bedside the patient had absconded from probation and they went to the patient's residence to obtain him. They found the patient hidden in a closet, and the patient was cuffed. He was complaining to the officers that he had to urinate, so they allowed him the opportunity to go. The officers noted that the patient was having a difficulty going and had a very weak stream. They then heart a loud thud and found the patient laying on the ground. The patient states that he does have a history of Seizures and is on 1000 mg of Keppra daily. He did miss 2-3 days of his Keppra. The patient is now complaining of a headache. He denies any recent drug or alcohol usage. Source of History: patient, police Onset: Shortly [employer] Position: head (Seizure-like episode) Quality: other (seizure-episode) Timing: resolved Associated Symptoms: + headache Review of Systems See HPI for pertinent positives & negatives. A total of 10 systems reviewed and were otherwise negative. Past Medical & Surgical Medical Problems: (1) Migraines (2) NEW SEIZURE DISORDER Family History Cancer Heart disease Hypertension Social History Smoking Status: Current Every Day Smoker Alcohol Use: none Drug Use: none Marital Status: Housing Status: lives with family Occupation Status: unemployed Current/Historical Medications Scheduled Levetiracetam (Keppra), 500 MG PO BID Allergies Coded Allergies: Penicillins (Verified Allergy, Unknown, UNKNOWN, 11/20/17) MEN WITH HIM SAY THEY KNOW OF NO ALLERGIES. Sulfa Antibiotics (Verified Allergy, Unknown, UNKNOWN, 11/20/17) MEN WITH HIM SAY THEY KNOW OF NO ALLERGIES. Physical Exam Vital Signs Date Time Temp Pulse Resp B/P (MAP) Pulse Ox O2 Delivery O2 Flow Rate FiO2 11/20/17 14:15 80 20 140/80 99 11/20/17 12:38 97 Room Air 11/20/17 11:42 96 Room Air 11/20/17 11:23 96 11/20/17 11:22 36.8 110 22 146/82 99 Room Air Physical Exam GENERAL: Patient appears very shaky on examination. HEAD: Normocephalic atraumatic EYES: Ocular movements intact pupils equal and react to light OROPHARYNX mucous membranes are moist no exudates present no erythema or edema present NECK: Supple no nuchal rigidity CHEST: Good equal expansion LUNGS: Clear and equal to auscultation CARDIAC: Normal S1 and S2 ABDOMEN: Soft nontender no guarding BACK: No CVA tenderness EXTREMITIES: No pain upon palpation normal muscle strength in all groups no clubbing cyanosis or edema NEURO: Patient is following commands and answering questions appropriately. Alert and oriented x3 Cranial Nerves 2-12 grossly intact Medical Decision & Procedures ER Provider Diagnostic Interpretation: CHEST ONE VIEW PORTABLE CLINICAL HISTORY: 27 years-old Male presenting with CHEST PAIN. TECHNIQUE: Portable upright AP view of the chest was obtained. COMPARISON: 04/27/2016. FINDINGS: Cardiomediastinal silhouette normal. Lungs and pleural spaces clear. Osseous structures normal. Upper abdomen normal. IMPRESSION: 1. No acute cardiopulmonary disease. Electronically signed by: Leroy Zuniga M.D. 11/20/2017 12:40 PM Dictated Date/Time: 11/20/2017 12:[address] HEAD WITHOUT CONTRAST (CT) CLINICAL HISTORY: Seizures, confusion, history of aneurysm. COMPARISON STUDY: August 14, 2017 TECHNIQUE: Axial CT of the brain is performed from the vertex to the skull base. IV contrast was not administered for this examination. A dose lowering technique was utilized adhering to the principles of ALARA. CT DOSE: 614.27 mGy.cm FINDINGS: No intra or extra-axial mass lesions are visualized. There is no CT evidence of acute cortical infarction. There is no evidence of midline shift. There is no acute hemorrhage. No calvarial fractures are visualized. There is no evidence of pathologic ventricular dilatation. There is trace fluid within the sphenoid sinus. IMPRESSION: 1. Trace fluid within the sphenoid sinus. 2. Otherwise normal noncontrast head CT. Electronically signed by: Terrence Maldonado M.D. 11/20/2017 1:39 PM Dictated Date/Time: 11/20/2017 1:33 PM The status of this report is Signed. Draft = Not yet reviewed or approved by Radiologist. Signed = Reviewed and approved by Radiologist. Laboratory Results 11/20/17 12:51 Red Blood Count 4.89, Mean Corpuscular Volume 86.1, Mean Corpuscular Hemoglobin 28.4, Mean Corpuscular Hemoglobin Concent 33.0, Mean Platelet Volume 10.5, Neutrophils (%) (Auto) 63.7, Lymphocytes (%) (Auto) 26.0, Monocytes (%) (Auto) 7.7, Eosinophils (%) (Auto) 1.8, Basophils (%) (Auto) 0.5, Neutrophils # (Auto) 6.63, Lymphocytes # (Auto) 2.71, Monocytes # (Auto) 0.80, Eosinophils # (Auto) 0.19, Basophils # (Auto) 0.05 11/20/17 12:51 Test 11/20/17 12:51 White Blood Count 10.41 K/uL (4.8-10.8) Red Blood Count 4.89 M/uL (4.7-6.1) Hemoglobin 13.9 g/dL (14.0-18.0) Hematocrit 42.1 % (42-52) Mean Corpuscular Volume 86.1 fL (80-100) Mean Corpuscular Hemoglobin 28.4 pg (25-34) Mean Corpuscular Hemoglobin Concent 33.0 g/dl (32-36) Platelet Count 207 K/uL (130-400) Mean Platelet Volume 10.5 fL (7.4-10.4) Neutrophils (%) (Auto) 63.7 % Lymphocytes (%) (Auto) 26.0 % Monocytes (%) (Auto) 7.7 % Eosinophils (%) (Auto) 1.8 % Basophils (%) (Auto) 0.5 % Neutrophils # (Auto) 6.63 K/uL (1.4-6.5) Lymphocytes # (Auto) 2.71 K/uL (1.2-3.4) Monocytes # (Auto) 0.80 K/uL (0.11-0.59) Eosinophils # (Auto) 0.19 K/uL (0-0.5) Basophils # (Auto) 0.05 K/uL (0-0.2) RDW Standard Deviation 40.0 fL (36.4-46.3) RDW Coefficient of Variation 12.6 % (11.5-14.5) Immature Granulocyte % (Auto) 0.3 % Immature Granulocyte # (Auto) 0.03 K/uL (0.00-0.02) Anion Gap 6.0 mmol/L (3-11) Est Creatinine Clear Calc Drug Dose 110.0 ml/min Estimated GFR () 126.6 Estimated GFR (Non- 109.3 BUN/Creatinine Ratio 14.6 (10-20) Calcium Level 8.7 mg/dl (8.5-10.1) Total Bilirubin 0.3 mg/dl (0.2-1) Direct Bilirubin 0.1 mg/dl (0-0.2) Aspartate Amino Transf (AST/SGOT) 98 U/L (15-37) Alanine Aminotransferase (ALT/SGPT) 179 U/L (12-78) Alkaline Phosphatase 118 U/L (45-117) Total Creatine Kinase 57 U/L (39-308) Creatine Kinase MB 0.7 ng/ml (0.5-3.6) Creatine Kinase MB Ratio 1.2 (0-3.0) Troponin I < 0.015 ng/ml (0-0.045) Pro-B-Type Natriuretic Peptide 72 pg/ml (0-450) Total Protein 7.6 gm/dl (6.4-8.2) Albumin 3.5 gm/dl (3.4-5.0) Lipase 69 U/L (73-393) Ethyl Alcohol mg/dL < 3.0 mg/dl (0-3) Labs reviewed by ED physician. Medications Administered Medications (Trade) Dose Ordered Sig/Bryanna Route Start Time Stop Time Status Last Admin Dose Admin Aspirin (Aspirin Chew) 324 mg NOW STAT PO 11/20/17 12:22 11/20/17 12:24 DC 11/20/17 12:38 324 MG Levetiracetam 1000 mg/Dextrose 110 ml @ 440 mls/hr ONE STAT IV 11/20/17 12:37 11/20/17 12:51 DC 11/20/17 12:57 440 MLS/HR Ketorolac Tromethamine (Toradol Inj) 30 mg NOW STAT IV 11/20/17 12:37 11/20/17 12:39 DC 11/20/17 12:54 30 MG Clonidine HCl ([id number]-[id number]-8 0.3mg/24hr Patch) 1 patch NOW STAT TD 11/20/17 12:37 11/20/17 12:39 DC 11/20/17 12:57 1 PATCH Prochlorperazine Edisylate 5 mg/ Syringe 5 ml @ 5 mls/min NOW STAT IV 11/20/17 12:37 11/20/17 12:39 DC 11/20/17 12:57 5 MLS/MIN Diphenhydramine HCl (Benadryl Inj) 50 mg NOW STAT IV 11/20/17 12:37 11/20/17 12:39 DC 11/20/17 12:54 50 MG Sodium Chloride 1,000 ml @ 999 mls/hr Q1H1M STAT IV 11/20/17 12:39 11/20/17 13:39 DC 11/20/17 12:53 999 MLS/HR ECG Per My Interpretation Indication: syncope (Seizure) Rate (beats per minute): 88 Rhythm: normal sinus Findings: other (No PVCs, No ST Elevation or Depresison) ED Course 1222: Ordered Aspirin 324 mg PO. 1231: Past medical records reviewed. The patient was evaluated in room C9. A complete history and physical examination was performed. 1237: Ordered Benadryl 50 mg IV, Prochlorperazine 5 mL @ 5 mL/min IV, Clonidine HCl 1 patch, Toradol 30 mg IV, Levetiracetam 110 mL @ 440 mL/hr IV. 1239: Ordered Sodium Chloride 1000 mL @ 999 mL/hr IV. 1256: The patient refused the placement of a Topete Catheter at this time. 1358: Upon reexamination the patient is resting in bed. I discussed results and treatment plan with the patient. He verbalizes agreement and understanding. The patient is ready for discharge. Medical Decision Differential diagnosis: Etiologies such as infection, hypoglycemia, electrolyte abnormalities, cardiac sources, intracerebral event, trauma, toxicologic, neurologic, as well as others were entertained. This is a 27-year-old male presents emergency department complaining of a syncopal episode as he was trying to urinate. I will note that the patient has been seen here before for her urinary retention as well as seizures in the past. The patient is extremely shaky on examination and I suspect he is in some sort of withdrawal. For this reason a clonidine patch was ordered. In addition to clonidine also help with this patient's elevation in his blood pressure. He is complaining of a headache therefore sent for CAT scan of the head which does not show any acute process. The patient has no evidence of meningitis or encephalitis on examination area he was given a migraine cocktail consisting of Toradol, Compazine, Benadryl. I strongly recommended a urinary Topete catheter for this patient however he is adamantly refusing. I do believe that this patient can be safely discharged into the care of his caretakers. I strongly recommended follow-up with urology at this point for this patient. He was also loaded with Keppra as I suspect he has not been taking his Keppra. I recommended taking 500 mg of Keppra twice a day as well as follow-up with neurology. Patient was in agreement with the treatment plan. Medication Reconcilliation Current Medication List: was personally reviewed by me Blood Pressure Screening Patient's blood pressure: Elevated blood pressure Blood pressure disposition: Elevated BP felt to be situational Impression Primary Impression: Seizure Additional Impression: Urinary retention Scribe Attestation The scribe's documentation has been prepared under my direction and personally reviewed by me in its entirety. I confirm that the note above accurately reflects all work, treatment, procedures, and medical decision making performed by me. Departure Information Dispostion Home / Self-Care Referrals Israel Guzman M.D. (PCP) Forms HOME CARE DOCUMENTATION FORM, IMPORTANT VISIT INFORMATION Patient Instructions My [facility] Additional Instructions Need follow up with Dr Weston' office for urinary retention Continue taking Keppra twice a day Follow up with Dr Newell's office for seizures You were found to have an elevated blood pressure today (>120 sytolic or >90 diastolic). Per medicare guidelines, you need to follow up with this blood pressure screening with your Primary Care Physician (PCP). For a new PCP call [phone]. You have been examined and treated today on an emergency basis only. This is not a substitute for, or an effort to provide, complete comprehensive medical care. It is impossible to recognize and treat all injuries or illnesses in a single emergency department visit. It is therefore important that you follow up closely with Dr Demetrius Duke. Call as soon as possible for an appointment. Thank you for your time and consideration. I look forward to speaking with you again soon. Please don't hesitate to call us if you have any questions. Problem Qualifiers
[2017-11-20 13:20] LABS: BASO % 0.5 %; BASO ABS # 0.05 K/uL (0-0.2); EOS % 1.8 %; EOS ABS # 0.19 K/uL (0-0.5); HEMATOCRIT 42.1 % (42-52); HEMOGLOBIN 13.9 g/dL (14.0-18.0); IG# 0.03 K/uL (0.00-0.02); LYMPH ABS # 2.71 K/uL (1.2-3.4); MEAN CELL VOLUME 86.1 fL (80-100); MEAN CORPUSCULAR HEMOGLOBIN 28.4 pg (25-34); MEAN PLATELET VOLUME 10.5 fL (7.4-10.4); MONO % 7.7 %; NEUT % 63.7 %; NEUT ABS # 6.63 K/uL (1.4-6.5); PLATELET COUNT 207 K/uL (130-400); RED CELL DISTRIBUTION WIDTH CV 12.6 % (11.5-14.5); WHITE BLOOD COUNT 10.41 K/uL (4.8-10.8)
[2017-11-20 13:35] LABS: ALBUMIN 3.5 gm/dl (3.4-5.0); ALT/SGPT 179 U/L (12-78); BLOOD UREA NITROGEN 14 mg/dl (7-18); CALCIUM 8.7 mg/dl (8.5-10.1); CARBON DIOXIDE 27 mmol/L (21-32); CREATININE 0.95 mg/dl (0.60-1.40); GLUCOSE 107 mg/dl (70-99); LIPASE 69 U/L (73-393); POTASSIUM 3.9 mmol/L (3.5-5.1); SODIUM 137 mmol/L (136-145)
--- NOTE | 2017-11-20 13:40 | DIAGNOSTIC IMAGING REPORT ---
CT HEAD WITHOUT CONTRAST (CT) CLINICAL HISTORY: Seizures, confusion, history of aneurysm. COMPARISON STUDY: August 14, 2017 TECHNIQUE: Axial CT of the brain is performed from the vertex to the skull base. IV contrast was not administered for this examination. A dose lowering technique was utilized adhering to the principles of ALARA. CT DOSE: 614.27 mGy.cm FINDINGS: No intra or extra-axial mass lesions are visualized. There is no CT evidence of acute cortical infarction. There is no evidence of midline shift. There is no acute hemorrhage. No calvarial fractures are visualized. There is no evidence of pathologic ventricular dilatation. There is trace fluid within the sphenoid sinus. IMPRESSION: 1. Trace fluid within the sphenoid sinus. 2. Otherwise normal noncontrast head CT. Electronically signed by: Terrence Maldonado M.D. 11/20/2017 1:39 PM Dictated Date/Time: 11/20/2017 1:33 PM
[2017-11-20 13:41] LABS: ALKALINE PHOSPHATASE 118 U/L (45-117); AST/SGOT 98 U/L (15-37); CKMB 0.7 ng/ml (0.5-3.6); TOTAL PROTEIN 7.6 gm/dl (6.4-8.2)
[2017-11-20 14:15] VITALS: BP 140/80; PULSE 80; O2SAT 99
== END 2017-11-20 14:17 | disposition home or self-care (01) ==
LOC: EDBD 11:10 → C.EDC 11:11
DX: R56.9 Unspecified convulsions (principal); R55 Syncope and collapse; R33.9 Retention of urine, unspecified; F17.200 Nicotine dependence, unspecified, uncomplicated; Z88.0 Allergy status to penicillin

== ENCOUNTER 2017-11-24 01:56 | Emergency (ER) | payer OTHER ==
[~2017-11-24] VITALS: Ht 175.3 cm; Wt 59.9 kg
[2017-11-24 01:56] VITALS: TEMP 37.2; O2SAT 99; Ht 175.3 cm; Wt 59.9 kg
[2017-11-24] MEDS ORDERED: ACETAMINOPHEN 500 MG TAB PO STA (02:06)
[2017-11-24] MEDS ORDERED: LEVETIRACETAM IV 1,000 MG in DEXTROSE 5% 100ML 100 ML IV ONE (02:15)
[2017-11-24 02:39] LABS: BASO % 0.2 %; BASO ABS # 0.02 K/uL (0-0.2); EOS % 0.1 %; EOS ABS # 0.01 K/uL (0-0.5); HEMATOCRIT 43.6 % (42-52); HEMOGLOBIN 15.1 g/dL (14.0-18.0); IG# 0.02 K/uL (0.00-0.02); LYMPH % 27.6 %; LYMPH ABS # 3.03 K/uL (1.2-3.4); MEAN CELL VOLUME 83.7 fL (80-100); MEAN CORPUSCULAR HGB CONC 34.6 g/dl (32-36); MEAN PLATELET VOLUME 10.3 fL (7.4-10.4); MONO % 7.9 %; MONO ABS # 0.87 K/uL (0.11-0.59); NEUT ABS # 7.02 K/uL (1.4-6.5); PLATELET COUNT 258 K/uL (130-400); RED CELL DISTRIBUTION WIDTH CV 12.5 % (11.5-14.5); RED CELL DISTRIBUTION WIDTH SD 37.9 fL (36.4-46.3); WHITE BLOOD COUNT 10.97 K/uL (4.8-10.8)
[2017-11-24 02:56] LABS: ALBUMIN 3.9 gm/dl (3.4-5.0); CALCIUM 8.9 mg/dl (8.5-10.1); POTASSIUM 3.4 mmol/L (3.5-5.1)
[2017-11-24 03:07] LABS: PHOSPHORUS 2.3 mg/dl (2.5-4.9); TOTAL PROTEIN 8.4 gm/dl (6.4-8.2)
[2017-11-24] MEDS ORDERED: POTASSIUM CHLORIDE 10 MEQ TABCR PO STA (03:07)
[2017-11-24] MEDS ORDERED: LEVE500T13 PO (03:11)
--- NOTE | 2017-11-24 03:12 | EMERGENCY ROOM VISIT NOTE ---
History First contact with patient: 01:59 Chief Complaint: SEIZURE Stated Complaint: SEIZURE Nursing Triage Summary: Pt arrived via [facility] from [facility]. Per Blast Furnace Checker Rodríguez, around midnight [facility] had a 10-15sec seizure where he became rigid and fell. Hitting right/back of head. Bl[employer] Furnace Checker reports that staff informed him that the pt had 11 of these episodes and was given 1mg IM Ativan at the halfway. Blast Furnace Checker reports that the pt had one episode in which he witnessed the pt become rigid. Seizure lasted 10 seconds. Pt awoke immediately and began talking as if the seizure did not happen. Pt typically takes Keppra daily for his seizures. pt reporting that he has not taken his Keppra in 3 days as "the nurses wouldn't give it to me". Kamilah GRACIA called halfway and confirmed with nurse at halfway that the pt has not received Keppra in 3 days due to error with prescription. Pt complaining of 9/10 head pain in the back and right temporal areas. Red abrasion to right temporal area. Pt currently CAOx4. Complaining only of head pain 9/10. No neurological deficits at this time. History of Present Illness The patient is a 27 year old male who presents to the Emergency Room with complaints of possible seizures tonight. Patient was incarcerated for nights ago. Patient states he has not been able to take his Keppra as the present does not not have it for him. He states he takes 500 mg twice a day. He states he is unsure he has been officially diagnosed with seizures. He states he had an EEG in the past but does not know the results. He does have history of heroin abuse but he states nothing within the past few months. He does like to smoke a lot of marijuana but has not the past 4 days as he has been incarcerated. Patient states tonight he had multiple seizures. He was not incontinent. Patient states 1 of his seizures he fell and struck his head. Patient states his pain is 10 out of 10 to his head located in the frontal region. It does not radiate. Nothing makes it better or worse. He states he has an aneurysm in his brain. Patient denies neck pain, chest pain, dyspnea, fever, chills, nausea, vomiting, diarrhea, localized weakness. Patient was not postictal. Upon chart review, patient had a brain CTA a few months ago that showed no aneurysm. Patient was informed this and said nothing. The correction officers states he has been in the halfway system before. Review of Systems An 10 system review of systems was completed with positives and pertinent negatives listed in the HPI. Past Medical/Surgical History Medical Problems: (1) Migraines (2) NEW SEIZURE DISORDER Family History Cancer Heart disease Hypertension Social History Smoking Status: Current Every Day Smoker Alcohol Use: none Drug Use: heroin, marijuana Marital Status: Housing Status: lives with family Occupation Status: unemployed Current/Historical Medications Scheduled Levetiracetam (Keppra), 500 MG PO BID Levetiracetam (Keppra), 500 MG PO BID Physical Exam Vital Signs Date Time Temp Pulse Resp B/P (MAP) Pulse Ox O2 Delivery O2 Flow Rate FiO2 11/24/17 03:20 82 18 133/76 97 Room Air 11/24/17 02:30 71 17 136/76 98 11/24/17 02:11 82 11/24/17 02:01 143/73 11/24/17 01:56 37.2 74 16 139/78 99 Room Air 11/24/17 01:56 99 Room Air Physical Exam VITALS: Vitals are noted on the nurse's note and reviewed by myself. Vital signs stable. GENERAL: White male in shackles, in no acute distress, nondiaphoretic, well- developed well-nourished. SKIN: The rest of the skin was without rashes, erythema, edema, or bruising. There is no tenting of the skin. Capillary reflex less than 2 seconds. HEAD: Normocephalic atraumatic. Abrasion to right adventist area EARS: External auditory canals clear, tympanic membranes pearly weathers without erythema or effusion bilaterally. EYES: Pupils equal round and reactive to light and accommodation. Conjunctivae without injection, sclerae without icterus. Extraocular movements intact. NOSE: Patent, turbinates without inflammation or discharge. No sinus tenderness. MOUTH: Mucous membranes moist. Pharynx without erythema or exudate. Uvula midline. Airway patent. Tongue does not deviate. NECK: Supple without nuchal rigidity. No lymphadenopathy. No thyromegaly. Cervical spine is nontender. No JVD. HEART: Regular rate and rhythm without murmurs gallops or rubs. LUNGS: Clear to auscultation bilaterally without wheezes, rales or rhonchi. No retractions or accessory muscle use. ABDOMEN: Positive bowel sounds x 4. Normal tympanic percussion. Soft, nontender, without masses or organomegaly. Knapp sign negative. No guarding or rebound tenderness. No CVA tenderness MUSCULOSKELETAL: No muscle atrophy, erythema, or edema noted. No thoracic or lumbar tenderness on exam. 5 out of 5 strength throughout. NEURO: Patient was alert and oriented to person place and time. Normal sensation to light and sharp touch. No focal neurological deficits. Medical Decision & Procedures Laboratory Results 11/24/17 02:20 Red Blood Count 5.21, Mean Corpuscular Volume 83.7, Mean Corpuscular Hemoglobin 29.0, Mean Corpuscular Hemoglobin Concent 34.6, Mean Platelet Volume 10.3, Neutrophils (%) (Auto) 64.0, Lymphocytes (%) (Auto) 27.6, Monocytes (%) (Auto) 7.9, Eosinophils (%) (Auto) 0.1, Basophils (%) (Auto) 0.2, Neutrophils # (Auto) 7.02, Lymphocytes # (Auto) 3.03, Monocytes # (Auto) 0.87, Eosinophils # (Auto) 0.01, Basophils # (Auto) 0.02 11/24/17 02:20 Test 11/24/17 02:04 11/24/17 02:06 11/24/17 02:20 Bedside Glucose 91 mg/dl (70-99) White Blood Count 10.97 K/uL (4.8-10.8) Red Blood Count 5.21 M/uL (4.7-6.1) Hemoglobin 15.1 g/dL (14.0-18.0) Hematocrit 43.6 % (42-52) Mean Corpuscular Volume 83.7 fL (80-100) Mean Corpuscular Hemoglobin 29.0 pg (25-34) Mean Corpuscular Hemoglobin Concent 34.6 g/dl (32-36) Platelet Count 258 K/uL (130-400) Mean Platelet Volume 10.3 fL (7.4-10.4) Neutrophils (%) (Auto) 64.0 % Lymphocytes (%) (Auto) 27.6 % Monocytes (%) (Auto) 7.9 % Eosinophils (%) (Auto) 0.1 % Basophils (%) (Auto) 0.2 % Neutrophils # (Auto) 7.02 K/uL (1.4-6.5) Lymphocytes # (Auto) 3.03 K/uL (1.2-3.4) Monocytes # (Auto) 0.87 K/uL (0.11-0.59) Eosinophils # (Auto) 0.01 K/uL (0-0.5) Basophils # (Auto) 0.02 K/uL (0-0.2) RDW Standard Deviation 37.9 fL (36.4-46.3) RDW Coefficient of Variation 12.5 % (11.5-14.5) Immature Granulocyte % (Auto) 0.2 % Immature Granulocyte # (Auto) 0.02 K/uL (0.00-0.02) Anion Gap 8.0 mmol/L (3-11) Est Creatinine Clear Calc Drug Dose 94.0 ml/min Estimated GFR () 119.0 Estimated GFR (Non- 102.7 BUN/Creatinine Ratio 13.7 (10-20) Calcium Level 8.9 mg/dl (8.5-10.1) Phosphorus Level 2.3 mg/dl (2.5-4.9) Magnesium Level 2.0 mg/dl (1.8-2.4) Total Bilirubin 0.4 mg/dl (0.2-1) Direct Bilirubin 0.1 mg/dl (0-0.2) Aspartate Amino Transf (AST/SGOT) 40 U/L (15-37) Alanine Aminotransferase (ALT/SGPT) 114 U/L (12-78) Alkaline Phosphatase 105 U/L (45-117) Total Protein 8.4 gm/dl (6.4-8.2) Albumin 3.9 gm/dl (3.4-5.0) Thyroid Stimulating Hormone (TSH) 0.278 uIu/ml (0.300-4.500) Medications Administered Medications (Trade) Dose Ordered Sig/Bryanna Route Start Time Stop Time Status Last Admin Dose Admin Levetiracetam 1000 mg/Dextrose 110 ml @ 440 mls/hr ONE ONCE IV 11/24/17 02:15 11/24/17 02:29 DC 11/24/17 02:31 440 MLS/HR Acetaminophen (Tylenol Tab) 1,000 mg NOW STAT PO 11/24/17 02:06 11/24/17 02:07 DC 11/24/17 02:32 1,000 MG Potassium Chloride (Klor-Con M10) 10 meq NOW STAT PO 11/24/17 03:07 11/24/17 03:08 DC 11/24/17 03:19 10 MEQ ED Course Prior records/ancillary studies reviewed. Patient placed in seizure precautions immediately upon arrival. Nursing notes reviewed. Additional history obtained from halfway nurse and correction officers The patient's history was concerning for a possible seizure. Differential diagnosis: Etiologies such as infection, hypoglycemia, electrolyte abnormalities, cardiac sources, intracerebral event, trauma, toxicologic, neurologic, as well as others were entertained. Physical examination: As above. No signs of trauma. ER treatment provided: Keppra, Tylenol On reassessment the patient felt better. Diagnostics interpretation by me: ECG: Normal sinus, normal intervals, no acute ST-T wave changes. Impression normal sinus rhythm interpreted by myself The labs revealed stable H&H Mildly elevated LFTs. Patient was informed to get checked for hepatitis at the halfway as he is a history of IV drug abuse slightly low TSH Imaging studies: Head CT negative for intracranial bleed per radiology COMPARISON STUDY: CT head and MRI brain 04/27/2016 TECHNIQUE: Unenhanced axial CT scan of the brain is performed. Subsequently, following the IV administration of 93 cc of Optiray 320, CT angiogram of the brain was performed from the skull base to the vertex. Images are reviewed in the axial, sagittal, and coronal planes. 3-D MIPS images are created and assessed. IV contrast was administered without complication. A dose lowering technique was utilized adhering to the principles of ALARA. CT DOSE: 632.64 mGy.cm FINDINGS: CT BRAIN: There is no acute intracranial hemorrhage, midline shift, hydrocephalus, intracranial mass, territorial ischemia or abnormal extra-axial collections. No abnormal intra-axial or extra-axial enhancement. Mastoid air cells and middle ear cavities are clear. No calvarial fracture. There is mild polypoid mucosal thickening of the left maxillary and right sphenoid sinus. CT ANGIOGRAM OF THE BRAIN: The imaged bilateral internal carotid arteries are patent. The bilateral anterior and middle cerebral arteries are also patent. The vertebrobasilar system and posterior cerebral arteries are widely patent. The right vertebral artery is dominant. There is no aneurysm, high-grade stenosis, or proximal branch occlusion identified. Dural sinuses appear patent. IMPRESSION: 1. No acute intracranial abnormality. 2. Unremarkable CTA of the brain without high-grade stenosis, aneurysm, dissection or proximal branch occlusion. 3. Mild paranasal sinus disease. The above report was generated using voice recognition software. It may contain grammatical, syntax or spelling errors. Electronically signed by: Jesus Greenberg M.D. The patient has a history of seizures supposedly and experienced another episode. I believe he is having psychogenic nonepileptic seizures. Patient had 2 of these well in the ER at discharge as he was requesting to stay and wanted Ativan and was easily arousable with sternal rub and with pinching of the thumb. He was not postictal. He was grabbing at my hand when I was sternal rubbing him. He screened with the nurse pinched his thumb. Patient was neurovascularly and neurologically intact. No other injuries are noted. Patient had a facial abrasion and severe headache so imaging was ordered. This was negative. No concerning physical findings or historical points were noted. Advanced diagnostics were deemed unnecessary. By the evaluation outlined above emergent etiologies such as infection, hypoglycemia, electrolyte abnormalities, cardiac sources, intracerebral event, toxicologic, neurologic,as well as others were deemed relatively unlikely. The halfway nurse was contacted to verify that the patient can restart his Keppra. Patient was advised to take this as directed and to follow-up present doctor in a day or 2 or here in the ER sooner for headache, seizures, weakness, worsening signs or symptoms or as needed. While the nurse was discharging the patient, the patient began begging for some medication to help prevent seizures such as Ativan. I informed him I would not give him any of this. After I walked out of the room, the patient began to shake, the nurse got me and I sternal rubbed him and the patient grabbed my arm and he stopped shaking. I informed the patient this most likely is a psychogenic nonepileptic seizure and informed the correction officers. He was advised to follow-up with the halfway doctor. He then did this again for the nurse and the nurse pinched his thumb and screened. I do not believe these are real seizures. 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 The pt informed about the findings as listed above. All questions were answered. Return instructions were outlined and the patient was discharged in stable condition. Outpatient prescription management: Keppra 500 mg Referral: The patient was referred back to their halfway doctor for follow-up in 2 to 3 days for a recheck of the current condition. Case reviewed with my attending The chart was completed utilizing [employer] Speech voice recognition software. Grammatical errors, random word insertions, pronoun errors, and incomplete sentences are an occassional consequence of this system due to software limitations, ambient noise, and hardware issues. Any formal questions or concerns about the content, text, or information contained within the body of this dictation should be directly addressed to the physician chemical laboratory assistant for clarification. Medical Decision As above Medication Reconcilliation Current Medication List: was personally reviewed by me Blood Pressure Screening Patient's blood pressure: Normal blood pressure Impression Primary Impression: Episode of shaking Additional Impressions: Head injury Facial abrasion Departure Information Dispostion Home / Self-Care Condition GOOD Prescriptions Levetiracetam (KEPPRA) 500 Mg Tab 500 MG PO BID, #60 TAB Prov: Day Alaniz ., BASIL 11/24/17 Referrals [facility] (PCP) Patient Instructions My [facility] Additional Instructions Your liver enzymes are slightly elevated. Recommend that you get checked for hepatitis at the halfway as you have a history of IV drug abuse. Your thyroid test was slightly low, you should recheck this with the halfway doctor. Antibiotic ointment and bandage to the areas until healed. Follow up with family doctor or return for any signs of infection (increasing redness, swelling , drainage, or fever). Keep covered when in sun until fully healed then SPF 50 or higher until scar healed. Keppra 500 mg: Take 1 tablet twice a day as directed. Acetaminophen(Tylenol) may be used for fever or pain. Use 1000mg every six hours as needed. Avoid using more than 3000mg in a 24 hour period. Rest and drink plenty of fluids as tolerated. Continue current medications. Avoid strenuous activities and anything that worsens your pain. Resume normal activities once your symptoms resolve. Return to the ER immediately for worsening or persistent seizures, headaches, confusion, abdominal pain, vomiting, fevers, chest pains, difficulty breathing, worsening of your condition, or as needed. Follow up with the halfway doctor in 2-3 days for a recheck of your current condition. Problem Qualifiers
[2017-11-24 03:20] VITALS: BP 133/76; PULSE 82; O2SAT 97
--- NOTE | 2017-11-24 07:04 | DIAGNOSTIC IMAGING REPORT ---
CT SCAN OF THE BRAIN WITHOUT IV CONTRAST CLINICAL HISTORY: Head injury. Seizure. COMPARISON STUDY: CT of the brain dated 11/20/2017. TECHNIQUE: Unenhanced axial CT scan of the brain is performed from the vertex to the skull base. A dose lowering technique was utilized adhering to the principles of ALARA. CT DOSE: 537.48 mGy.cm FINDINGS: Brain parenchyma: The brain parenchyma is normal in appearance. There is no hemorrhage, mass effect, or evidence of acute territorial ischemia by CT criteria. French-white matter is preserved. No extra-axial fluid collection is seen. Ventricles, sulci, cisterns: Normal in configuration. Intracranial vasculature: The visualized intracranial vasculature at the skull base is normal in appearance. Calvarium: There is no depressed calvarial fracture. Sinuses and mastoids: Minimal secretions are seen in the right sphenoid sinus. The remaining visualized paranasal sinuses are clear. The mastoid air cells are well pneumatized. Orbits: The bony orbits are grossly intact. IMPRESSION: No acute intracranial abnormality. Electronically signed by: Nick Avila M.D. 11/24/2017 7:03 AM Dictated Date/Time: 11/24/2017 7:01 AM
== END 2017-11-24 03:44 | disposition home or self-care (01) ==
LOC: EDBD 01:56 → C.EDB 02:01
DX: R25.1 Tremor, unspecified (principal); S00.81XA Abrasion of other part of head, initial encounter; W19.XXXA Unspecified fall, initial encounter; W22.8XXA Striking against or struck by other objects, initial encounter; G40.909 Epilepsy, unspecified, not intractable, without status epilepticus; F17.200 Nicotine dependence, unspecified, uncomplicated; Z82.49 Family history of ischemic heart disease and other diseases of the circulatory system; Z79.899 Other long term (current) drug therapy